=== PATIENT | male | born 1970 | race Caucasian/White ===

== ENCOUNTER 2019-06-17 06:57 | Emergency (ER) | payer OTHER ==
[2019-06-17 07:06] VITALS: BP 166/90; PULSE 101; RESP 16; TEMP 97.8
--- NOTE | 2019-06-17 07:23 | ED ---
Lower Extremity Injury HPI - General Chief Complaint: Extremity Injury, Lower Stated Complaint: Leg Pain/Hyperglycemia Time Seen by Provider: 06/17/19 07:09 Source: patient, RN notes reviewed, old records reviewed Mode of arrival: ambulatory Limitations: no limitations - History of Present Illness Initial Comments: Patient is a 48-year-old male with a history of diabetes, noncompliant due to lack of insurance. He reports he does not insulin or metformin for the past year. Patient presents today complaining of occasional shaking, peripheral pain in his extremities. He is concerned that is related to his blood sugar. Patient states that he does not check his blood sugars at home but transmitted persist diet. Patient states that he has no falls or trauma. Denies any headache or any other complaints. - Related Data Previous Rx's Medication Instructions Recorded metFORMIN HCL 500 mg PO BID #10 tablet 06/17/19 Allergies Allergy/AdvReac Type Severity Reaction Status Date / Time cinnamon Allergy Wheezing Verified 06/17/19 07:38 codeine AdvReac Nausea Verified 06/17/19 07:38 Review of Systems ROS Statement: Those systems with pertinent positive or pertinent negative responses have been documented in the HPI. ROS Other: All systems not noted in ROS Statement are negative. Past Medical History Past Medical History: Diabetes Mellitus Past Surgical History: Appendectomy, Hernia Repair Smoking Status: Current every day smoker Past Alcohol Use History: None Reported Past Drug Use History: None Reported General Exam - General Exam Comments Initial Comments: Is a 48-year-old male. Alert and oriented. No distress. Limitations: no limitations General appearance: alert, in no apparent distress Head exam: Present: atraumatic, normocephalic, normal inspection Eye exam: Present: normal appearance, PERRL, EOMI. Absent: scleral icterus, conjunctival injection, periorbital swelling ENT exam: Present: normal exam Neck exam: Present: normal inspection. Absent: tenderness, meningismus, lymphadenopathy Respiratory exam: Present: normal lung sounds bilaterally. Absent: respiratory distress, wheezes, rales, rhonchi, stridor Cardiovascular Exam: Present: regular rate, normal rhythm, normal heart sounds. Absent: systolic murmur, diastolic murmur, rubs, gallop, clicks GI/Abdominal exam: Present: soft, normal bowel sounds. Absent: distended, tende rness, guarding, rebound, rigid Extremities exam: Present: normal inspection, full ROM, normal capillary refill. Absent: tenderness, pedal edema, joint swelling, calf tenderness Back exam: Present: normal inspection Neurological exam: Present: alert, oriented X3, CN II-XII intact Psychiatric exam: Present: normal affect, normal mood Skin exam: Present: warm, dry, intact, normal color. Absent: rash Course Vital Signs 06/17/19 07:02 Temperature 97.8 F Pulse Rate 101 H Respiratory 16 Rate Blood Pressure 166/90 O2 Sat by Pulse 98 Oximetry Medical Decision Making - Medical Decision Making This is a 48-year-old male presents today for evaluation for concerns for hyperglycemia. is been out of his insulin and metformin for over a year to 2 lack of insurance. Patient complains of lower extremity tingling and numbness. Patient has no physical exam findings are normal. Patient's blood sugar was 245. Patient peripheral paresthesias and pains. Discussed that likely chronically elevated blood sugars. Discussed at this time I'll write him for short course for metformin but he needs follow-up with primary care provider and establish insurance for further care for his management of his chronic medical problems. Patient agrees to plan will comply. Return parameters were discussed. - Lab Data Lab Results 06/17/19 Range/Units 07:40 POC Glucose (mg/dL) 245 H (75-99) mg/dL POC Glu Manager Account Management ID Michaela Borges Disposition Clinical Impression: Chronic hyperglycemia Disposition: HOME SELF-CARE Condition: Good Instructions (If sedation given, give patient instructions): Diabetic Hyperglycemia (ED) Additional Instructions: Patient advised to follow-up with primary care physicians. Take the medication as prescribed. Return to the urgency department if any alarming signs or symptoms occur. Follow up with [facility]. [place]: [phone] [place] [id number] Appointment is Necessary Call @6AM Sunday, Sunday, Sunday & 8am-11am Only take patients with no insurance or Medicaid. ---Do not accept patient with Blue Cross, Medicare, or Commerical Insurance Prescriptions: metFORMIN HCL 500 mg PO BID #10 tablet Is patient prescribed a controlled substance at d/c from ED?: No Referrals: None,Stated [Primary Care Provider] - 1-2 days Jagdeep Ryder MD [REFERRING] - 1-2 days Britany Romeo MD [STAFF PHYSICIAN] - 1-2 days Time of Disposition: 07:56
[2019-06-17 07:42] LABS: Glucose,Whole Blood 245 mg/dL (75-99)
[2019-06-17 08:00] LABS: Appearance,Urine Cloudy (Clear); Bacteria,Urine Rare /hpf; Bilirubin,Urine Negative (Negative); Blood,Urine Negative (Negative); Color,Urine Yellow; Glucose,Urine (UA) 4+ (Negative); Hyaline Casts,Urine 2 /lpf (0-2); Ketones,Urine Negative (Negative); Leukocyte Esterase,Urine Moderate (Negative); Mucus,Urine Occasional /hpf; Nitrite,Urine Negative (Negative); PH, Urine 5.5 (5.0-8.0); Protein,Urine 1+ (Negative); RBC,Urine 5 /hpf (0-5); Specific Gravity,Urine 1.036 (1.001-1.035); Squamous Epithelial Cell,Urine 9 /hpf (0-4); Urobilinogen,Urine <2.0 mg/dL (<2.0)
== END 2019-06-17 08:04 | disposition home or self-care (01) ==
LOC: EC 06:57
DX: E11.65 Type 2 diabetes mellitus with hyperglycemia (principal); M79.604 Pain in right leg; M79.605 Pain in left leg; R20.2 Paresthesia of skin; F17.200 Nicotine dependence, unspecified, uncomplicated; Z88.5 Allergy status to narcotic agent; Z91.018 Allergy to other foods; Z91.19 Patient's noncompliance with other medical treatment and regimen
CPT/HCPCS: 36415; 81001; 99284

== ENCOUNTER → 2019-06-25 | Outpatient (CLI) | payer OTHER | END | disposition home or self-care (01) | LOC: LABWHC1 10:17 | PROVIDERS: ATTEND Nurse Practitioner Adult Health | DX: Z53.9 Procedure and treatment not carried out, unspecified reason (principal) ==

== ENCOUNTER → 2019-06-26 | Outpatient (CLI) | payer OTHER ==
[2019-06-26 08:48] LABS: Appearance,Urine Clear (Clear); Bacteria,Urine Rare /hpf; Bilirubin,Urine Negative (Negative); Blood,Urine Negative (Negative); Color,Urine Yellow; Glucose,Urine (UA) 3+ (Negative); Ketones,Urine Negative (Negative); Leukocyte Esterase,Urine Trace (Negative); Mucus,Urine Rare /hpf; Nitrite,Urine Negative (Negative); PH, Urine 5.5 (5.0-8.0); Protein,Urine 1+ (Negative); RBC,Urine 1 /hpf (0-5); Specific Gravity,Urine 1.029 (1.001-1.035); Squamous Epithelial Cell,Urine 2 /hpf (0-4); Urobilinogen,Urine <2.0 mg/dL (<2.0); WBC,Urine 2 /hpf (0-5)
[2019-06-26 08:49] LABS: Basophils # (A) 0.1 k/uL (0-0.2); Basophils % (A) 1 %; Eosinophils # (A) 0.2 k/uL (0-0.7); Eosinophils % (A) 2 %; HCT 55.7 % (39.0-53.0); HGB 18.7 gm/dL (13.0-17.5); Lymphocytes % (A) 20 %; MCH 30.2 pg (25.0-35.0); MCHC 33.5 g/dL (31.0-37.0); MCV 90.3 fL (80.0-100.0); Mean Platelet Volume 8.5; Monocytes # (A) 0.6 k/uL (0-1.0); Monocytes % (A) 6 %; Neutrophils # (A) 7.1 k/uL (1.3-7.7); Neutrophils % (A) 70 %; Platelet Count 167 k/uL (150-450); RBC 6.17 m/uL (4.30-5.90); RDW 15.6 % (11.5-15.5); WBC 10.2 k/uL (3.8-10.6)
[2019-06-26 10:27] LABS: ALT 48 U/L (21-72); AST 26 U/L (17-59); African American GFR (CKD) >90 (>60 ml/min/1.73 sqM); Albumin 4.4 g/dL (3.5-5.0); Albumin/Globulin Ratio 1.4; Alkaline Phosphatase 63 U/L (38-126); Anion Gap 9 mmol/L; Bilirubin,Unconjugated 0.5 mg/dL (0.0-1.1); Blood Urea Nitrogen 18 mg/dL (9-20); Calcium 9.6 mg/dL (8.4-10.2); Carbon Dioxide 28 mmol/L (22-30); Chloride 103 mmol/L (98-107); Cholesterol 202 mg/dL (<200); Globulin 3.2 g/dL; Glucose 228 mg/dL (74-99); HDL Cholesterol 21 mg/dL (40-60); Sodium 140 mmol/L (137-145); Total Bilirubin 0.7 mg/dL (0.2-1.3); Total Protein 7.6 g/dL (6.3-8.2); Triglycerides 466 mg/dL (<150)
[2019-06-26 10:46] LABS: T4, Free (Free Thyroxine) 1.21 ng/dL (0.78-2.19)
[2019-06-26 19:56] LABS: Hemoglobin A1C 11.2 % (4.0-6.0)
== END | disposition home or self-care (01) ==
LOC: LABWHC1 08:07
PROVIDERS: ATTEND Nurse Practitioner Adult Health
DX: E11.9 Type 2 diabetes mellitus without complications (principal)
CPT/HCPCS: 36415; 80053; 80061; 81001; 82248; 82306; 82607; 83036; 84439; 84443; 85025

== ENCOUNTER 2019-08-21 10:07 | Emergency (ER) | payer OTHER ==
[2019-08-21 10:22] VITALS: RESP 18; TEMP 98.2
--- NOTE | 2019-08-21 11:03 | ED ---
Abdominal Pain HPI - General Chief Complaint: Abdominal Pain Stated Complaint: Abd Pain Time Seen by Provider: 08/21/19 10:30 Source: patient Mode of arrival: ambulatory - History of Present Illness Initial Comments: Patient is a 48-year-old male presenting to emergency Department with a chief complaint of abdominal pain. Patient reports he has had intermittent right flank pain for about 2 years that comes and goes but it has increased in severity over the past day. Patient reports the pain is sharp in nature and appears to be exacerbated with [id number] rotation. Patient denies any urinary or bowel symptoms. Patient denies any nausea vomiting or diarrhea. Patient denies hematuria, hematochezia or melena. Patient reports the pain is not related to oral intake. Patient has a history of appendectomy. - Related Data Previous Rx's Medication Instructions Recorded metFORMIN HCL 500 mg PO BID #10 tablet 06/17/19 Allergies Allergy/AdvReac Type Severity Reaction Status Date / Time cinnamon Allergy Wheezing Verified 08/21/19 10:22 codeine AdvReac Nausea Verified 08/21/19 10:22 Review of Systems ROS Statement: Those systems with pertinent positive or pertinent negative responses have been documented in the HPI. ROS Other: All systems not noted in ROS Statement are negative. Past Medical History Past Medical History: Diabetes Mellitus History of Any Multi-Drug Resistant Organisms: None Reported Past Surgical History: Appendectomy, Hernia Repair Past Psychological History: No Psychological Hx Reported Smoking Status: Former smoker Past Alcohol Use History: None Reported Past Drug Use History: None Reported General Exam Limitations: no limitations General appearance: alert, in no apparent distress Head exam: Present: atraumatic, normocephalic, normal inspection Eye exam: Present: normal appearance Pupils: Present: normal accommodation ENT exam: Present: normal exam, normal oropharynx, mucous membranes moist, TM's normal bilaterally, normal external ear exam Neck exam: Present: normal inspection, full ROM Respiratory exam: Present: normal lung sounds bilaterally Cardiovascular Exam: Present: regular rate, normal rhythm, normal heart sounds GI/Abdominal exam: Present: soft, tenderness (Right lower quadrant pain. Negative Dinero sign), normal bowel sounds, organomegaly (Hepatomegaly). Absent: distended, guarding, rebound Extremities exam: Present: normal inspection, full ROM Back exam: Present: normal inspection, full ROM, CVA tenderness (R) Neurological exam: Present: alert, oriented X3 Psychiatric exam: Present: normal affect, normal mood Skin exam: Present: warm, intact, normal color Course Vital Signs 08/21/19 10:19 Temperature 98.2 F Pulse Rate 97 Respiratory 18 Rate Blood Pressure 116/79 O2 Sat by Pulse 96 Oximetry Medical Decision Making - Medical Decision Making Patient is a 48-year-old male presenting to emergency Department with a chief complaint of right flank pain. Patient reports associated been ongoing for about 2 years but has recently gotten worse over the last day. Patient has any nausea or vomiting. Physical examination there appears to be right CVA t enderness along with right lower quadrant pain. Patient does not have an appendix. Labs indicated mild leukocytosis and there otherwise unremarkable. CT abdomen and pelvis indicative of long segmental bowel wall thickening and nondistention of the hepatic flexure and portion of the adjacent transverse colon appearing as acute colitis of infection or inflammatory etiology. Multiple prominent lymph nodes throughout her abdomen may be reactive. Hepatic steatosis noted. Left renal lesion also noted. Results discussed with patient. Patient doesn't have any nausea vomiting or diarrhea at this time. I also suspect there to be a musculoskeletal aspect of the pain as it appears to be exacerbated with left and right rotation. Patient given symptomatic control and fluids. Patient will be discharged and advised to follow-up with primary care. Patient also advised to see a GI specialist. Strict return parameters were thoroughly discussed the patient was understanding and agreeable. Case discussed physician. - Lab Data Result diagrams: 08/21/19 11:05 08/21/19 11:05 Lab Results 08/21/19 08/21/19 08/21/19 Range/Units 11:05 11:05 11:05 WBC 12.0 H (3.8-10.6) k/uL RBC 5.38 (4.30-5.90) m/uL Hgb 16.7 (13.0-17.5) gm/dL Hct 47.1 (39.0-53.0) % MCV 87.6 (80.0-100.0) fL MCH 31.1 (25.0-35.0) pg MCHC 35.5 (31.0-37.0) g/dL RDW 13.4 (11.5-15.5) % Plt Count 177 (150-450) k/uL Neutrophils % 81 % Lymphocytes % 12 % Monocytes % 4 % Eosinophils % 1 % Basophils % 1 % Neutrophils # 9.6 H (1.3-7.7) k/uL Lymphocytes # 1.4 (1.0-4.8) k/uL Monocytes # 0.5 (0-1.0) k/uL Eosinophils # 0.1 (0-0.7) k/uL Basophils # 0.1 (0-0.2) k/uL Sodium 138 (137-145) mmol/L Potassium 4.4 (3.5-5.1) mmol/L Chloride 102 (98-107) mmol/L Carbon Dioxide 25 (22-30) mmol/L Anion Gap 11 mmol/L BUN 14 (9-20) mg/dL Creatinine 0.58 L (0.66-1.25) mg/dL Est GFR (CKD-EPI)AfAm >90 (>60 ml/min/1.73 sqM) Est GFR (CKD-EPI)NonAf >90 (>60 ml/min/1.73 sqM) Glucose 166 H (74-99) mg/dL Calcium 9.6 (8.4-10.2) mg/dL Total Bilirubin 1.0 (0.2-1.3) mg/dL AST 21 (17-59) U/L ALT 38 (21-72) U/L Alkaline Phosphatase 56 (38-126) U/L Total Protein 7.5 (6.3-8.2) g/dL Albumin 4.5 (3.5-5.0) g/dL Amylase 88 (30-110) U/L Lipase 160 (23-300) U/L Urine Color Yellow Urine Appearance Clear (Clear) Urine pH 5.5 (5.0-8.0) Ur Specific [place] 1.023 (1.001-1.035) Urine Protein Trace H (Negative) Urine Glucose (UA) Negative (Negative) Urine Ketones Negative (Negative) Urine Blood Negative (Negative) Urine Nitrite Negative (Negative) Urine Bilirubin Negative (Negative) Urine Urobilinogen <2.0 (<2.0) mg/dL Ur Leukocyte Esterase Negative (Negative) Disposition Clinical Impression: Right flank pain Disposition: HOME SELF-CARE Condition: Stable Instructions (If sedation given, give patient instructions): Abdominal Pain (ED) Additional Instructions: Please follow with a GI specialist. Please return to emergency department if symptoms worsen. Alternate between Tylenol and ibuprofen for pain control. Is patient prescribed a controlled substance at d/c from ED?: No Referrals: Katelyn Ortega MD [Primary Care Provider] - 1-2 days Time of Disposition: 13:51
[2019-08-21 11:24] LABS: Basophils # (A) 0.1 k/uL (0-0.2); Basophils % (A) 1 %; Eosinophils # (A) 0.1 k/uL (0-0.7); Eosinophils % (A) 1 %; HCT 47.1 % (39.0-53.0); HGB 16.7 gm/dL (13.0-17.5); Lymphocytes # (A) 1.4 k/uL (1.0-4.8); Lymphocytes % (A) 12 %; MCH 31.1 pg (25.0-35.0); MCHC 35.5 g/dL (31.0-37.0); MCV 87.6 fL (80.0-100.0); Mean Platelet Volume 6.9; Monocytes # (A) 0.5 k/uL (0-1.0); Monocytes % (A) 4 %; Neutrophils # (A) 9.6 k/uL (1.3-7.7); Neutrophils % (A) 81 %; Platelet Count 177 k/uL (150-450); RBC 5.38 m/uL (4.30-5.90); RDW 13.4 % (11.5-15.5)
[2019-08-21 11:26] LABS: Appearance,Urine Clear (Clear); Bilirubin,Urine Negative (Negative); Blood,Urine Negative (Negative); Color,Urine Yellow; Glucose,Urine (UA) Negative (Negative); Ketones,Urine Negative (Negative); Leukocyte Esterase,Urine Negative (Negative); Nitrite,Urine Negative (Negative); PH, Urine 5.5 (5.0-8.0); Protein,Urine Trace (Negative); Specific Gravity,Urine 1.023 (1.001-1.035); Urobilinogen,Urine <2.0 mg/dL (<2.0)
[2019-08-21 11:28] LABS: ALT 38 U/L (21-72); AST 21 U/L (17-59); African American GFR (CKD) >90 (>60 ml/min/1.73 sqM); Albumin 4.5 g/dL (3.5-5.0); Alkaline Phosphatase 56 U/L (38-126); Amylase 88 U/L (30-110); Anion Gap 11 mmol/L; Blood Urea Nitrogen 14 mg/dL (9-20); Calcium 9.6 mg/dL (8.4-10.2); Carbon Dioxide 25 mmol/L (22-30); Chloride 102 mmol/L (98-107); Glucose 166 mg/dL (74-99); Potassium 4.4 mmol/L (3.5-5.1); Sodium 138 mmol/L (137-145); Total Protein 7.5 g/dL (6.3-8.2)
--- NOTE | 2019-08-21 13:20 | CT ---
EXAMINATION TYPE: CT abdomen pelvis w con DATE OF EXAM: 08/21/2019 COMPARISON: None HISTORY: Right flank pain. CT DLP: 1062.1 mGycm Automated exposure control for dose reduction was used. TECHNIQUE: Helical acquisition of images was performed from the lung bases through the pelvis. CONTRAST: Performed without Oral Contrast and with IV Contrast, patient injected with 100 mL of Isovue 300. FINDINGS: LUNG BASES: Subpleural fat deposition is seen at the lung bases as well as bibasilar subsegmental ate lectasis. LIVER/GB: Hepatic parenchyma is diffusely hypoattenuated in comparison to that of the spleen, most co mmonly seen in hepatic steatosis. This finding limits evaluation for hepatic masses. Possible focal f atty sparing is seen near the gallbladder fossa, a typical location for focal fatty sparing. No intra hepatic biliary ductal dilatation. No radiopaque cholelithiasis. PANCREAS: No significant abnormality is seen. SPLEEN: Very small splenule is seen adjacent to the [place] spleen. ADRENALS: No significant abnormality is seen. KIDNEYS: There is a low-density left renal lesion that although is favored to represent a cyst with s ignal enhancement does not meet strict criteria for a cyst. Surveillance could be performed. This nicki sures 1.3 cm. Alternatively ultrasound could assess for increased through transmission to confirm cys tic nature. No hydronephrosis of either kidney. Kidneys excrete symmetrically. FREE AIR: No free air is visualized. URINARY BLADDER: No significant abnormality is seen. ADENOPATHY: There are few prominent periportal lymph nodes (4 in number measuring up to 9 mm in shor t axis (upper limits of normal). There are scattered prominent mesenteric lymph nodes also seen in th e central and left paracentral mesentery. OSSEOUS STRUCTURES: Degenerative disc disease is seen at L4-L5 and L5-S1 with mild degenerative cevallos ges of the remainder the visualized thoracolumbar spine. BOWEL: There is long segment haustral thickening and prominent vasa recta in the hepatic flexure and adjacent transverse colon best seen on coronal series 202 image 26 through 44.a no dilated large or small bowel. No pericolonic fluid collection to suggest abscess. Fat filled inguinal hernia on the ri ght is seen on coronal image 39. OTHER: Abdominal aorta is of normal course and caliber with mild atherosclerosis. IMPRESSION: 1. LONG SEGMENT BOWEL WALL THICKENING AND NONDISTENTION OF THE HEPATIC FLEXURE AND PORTIONS OF THE AD JACENT TRANSVERSE COLON APPEARING ACUTE UNCOMPLICATED COLITIS OF INFECTIOUS OR INFLAMMATORY ETIOLO GY. MULTIPLE NONENLARGED BUT PROMINENT LYMPH NODES THROUGHOUT THE ABDOMEN MAY BE REACTIVE. 2. HEPATIC STEATOSIS APPEARING MODERATE GRADE WITH PROBABLE FOCAL FATTY SPARING AROUND THE GALLBLADDE R FOSSA. 3. LEFT RENAL LESION THAT DOES NOT MEET DIAGNOSTIC CRITERIA FOR A CYST BUT IS FAVORED TO REPRESENT A CYST WITH PSEUDOENHANCEMENT. ULTRASOUND COULD CONFIRM CYSTIC NATURE.
[2019-08-21] MEDS ORDERED: KETOROLAC 30 MG/ML 1 ML VIAL IVP STA (13:23)
[2019-08-21] MEDS ORDERED: diphenhydrAMINE 50 MG/ML 1 ML VIAL IVP STA (13:23)
[2019-08-21] MEDS ORDERED: DICYCLOMINE 20 MG TAB PO STA (13:53)
[2019-08-21 14:29] VITALS: BP 127/90; PULSE 96
== END 2019-08-21 14:35 | disposition home or self-care (01) ==
LOC: EC 10:07
DX: D72.829 Elevated white blood cell count, unspecified (principal); N28.9 Disorder of kidney and ureter, unspecified; K76.0 Fatty (change of) liver, not elsewhere classified; Z90.49 Acquired absence of other specified parts of digestive tract; Z98.890 Other specified postprocedural states; Z87.891 Personal history of nicotine dependence; Z91.018 Allergy to other foods; Z88.5 Allergy status to narcotic agent; Z53.8 Procedure and treatment not carried out for other reasons
CPT/HCPCS: 99284; 96374; 36415; 80053; 82150; 83690; 85025; 81003; 74177; J1885; Q9967